=== PATIENT | male | born 1970 | race Hispanic/Latino ===

== ENCOUNTER 2019-05-02 06:54 | Inpatient (IN) | payer OTHER, SELFPAY ==
[2019-04-21 15:18] VITALS: BMI 29.8
[2019-05-02] VITALS (21 sets, daily range): BP systolic 97–162; BP diastolic 64–96; PULSE 82–132; RESP 10–20; TEMP 36.4–37.8; O2SAT 92–100; BMI 28.8
--- NOTE | 2019-05-02 | PATH_ITS ---
[facility] Accession Number: [id number] . 01 Material submitted: . kidney - RIGHT KIDNEY . 02 Diagnosis: Right Kidney, Total Nephrectomy: Clear cell renal cell carcinoma; see cancer case summary. . . SURGICAL PATHOLOGY CANCER CASE SUMMARY - KIDNEY Procedure: Total nephrectomy. Specimen laterality: Right. Tumor site: Lower pole. Tumor size: Greatest dimension: 6.5 cm. Tumor focality: Unifocal. Histologic type: Clear cell renal cell carcinoma. Sarcomatoid features: Not identified. Rhabdoid features: Not identified. Histologic grade: G2. Tumor necrosis: Not identified. Tumor extension: Tumor limited to kidney. Margins: Uninvolved by invasive carcinoma. Lymphovascular invasion: Not identified. Regional lymph nodes: No lymph nodes submitted or found. Pathologic stage classification (pTNM, AJCC 8th Ed) Primary tumor: pT1b Regional lymph nodes: pNX Pathologic findings in nonneoplastic kidney: None identified. MRV 05/05/2019 1253 Local . 02 Comment: As part of routine quality technician, Dr. Ariza has reviewed this case and agrees with the diagnosis of clear cell renal cell carcinoma. . 02 Electronically signed: . Mitchell Weir MD, PhD, Pathologist NPI- [id number] . 01 Gross description: . Received in formalin, labeled right kidney, weighing 671 grams, is a kidney (12.2 x 7.7 x 5.2 cm) with attached ureter (length-2.7 cm, diameter-1.0 cm), renal artery (length-0.8 cm, diameter-0.5 cm) and renal vein (length-0.8 cm, diameter-1.0 cm). Perinephritic adipose tissue (up to 7.5 cm in depth) encapsulates the entire kidney. No hilar lymph nodes are identified. The adrenal gland is not present. A romero-peacock and bright orange solid rubbery mass (6.5 x 4.8 x 4.5 cm) is identified in the lower pole. The mass appears to be confined to the parenchyma and is located 5.2 cm from the ureteric, and 6.2 cm from the venous resection margins. The mass pushes outward on the capsule but does not appear to extends through and does not extend into the perinephritic adipose tissue. The mass also abuts the renal sinus but does not appear to extend into the cavity. The renal pelvis is unremarkable. The ureter and vessels are unremarkable with no obvious mass invasion. The remaining parenchyma is romero and unremarkable. The resection margins are inked blue and the capsule is inked green. Section code: (A1) ureteric and vascular resection margins en face; (A2-A4) mass and renal sinus, arborist representative; (A5-A9) mass, arborist representative; (A10, A11) uninvolved parenchyma, arborist representative. ([id number]) /MRV 05/04/[id number] Local . 02 Pathologist provided ICD-10: C64.1 . 02 CPT . 179103 Performed at: 01 [facility] [address] [place] [address], [place], [place] [id number] MD Sanford Dia MD Phone: [phone] Performed at: 02 [facility] [address] [place], [place] [id number] MD Moon Ariza MD Phone: [phone]
[2019-05-02] MEDS: LACTATED RINGERS 1,000 ML 42 ML IV (07:30)
[2019-05-02 07:40] LABS: Hematocrit 40.6 % (41-53); Hemoglobin 13.8 g/dL (13.5-17.5)
--- NOTE | 2019-05-02 07:44 | PM.PREOP ---
Pre-operative Note Interval Note History & Physical reviewed/Exam performed by Physician: Yes Changes to H&P: No H&P completed within 30 days and has changed as indicated here:: History and physical exam on file.
[2019-05-02 07:52] LABS: BUN Creatinine Ratio 8.1 (6-22); Blood Urea Nitrogen 13 mg/dL (9-20); Carbon Dioxide 28 mmol/L (22-32); Chloride 104 mmol/L (98-107); Glucose 105 mg/dL (70-100); HEMOLYSIS < 15 (0-50); Sodium 142 mmol/L (137-145)
[2019-05-02] MEDS: CEFAZOLIN 2 GM/100 ML FROZ.PIGGY IV (08:10)
--- NOTE | 2019-05-02 08:14 | SUR.PREOP ---
Epidural placed in pre-op by Dr. Lombardo. Patient monitored during procedure. Became nauseated and tachycardic after procedure. Resolved quickly with HOB lowered. Patient taken to the OR by Pablo.
[2019-05-02] MEDS: LACTATED RINGERS 1,000 ML 100 ML IV ×3 (08:25→10:42)
--- NOTE | 2019-05-02 09:01 | SUR.OPER ---
Lateral on padded OR bed, head on pillow, gel axillary roll in place, bottom leg bent with gel pad under knee to foot, upper leg straight and supported with pillows. Upper arm supported by pillows and secured over bottom arm to padded arm board. Safety belt at hip, tape over blanket lower legs.
--- NOTE | 2019-05-02 09:39 | P.PCN_ITS ---
Procedures Date/Time Date of procedure: 05/02/19 Time of procedure: 07:45 General Procedure description: Thoracic epidural placed preoperatively for pain control after a Right radical total nephrectomy for unknown RCC type tumor by Dr Hilda gotti. Risks and benefits were discussed with the patient who agreed to proceed. In pre-op holding, patient was positioned sitting, slouched position with ASA monitoring. For procedural sedation, he was given 2mg Versed and 50mcg Fentanyl. Skin was prepped with chlorhexidine and allowed to fully dry. Sterile drapes applied. I wore sterile glove, hat and mask. Skin was anesthetized with 1% lidocaine. Using an 18 ga Tresa needle with low resistance saline syringe, epidural space was located between T8-9 interspace. Loss of resistance occured at 5 cm deep to skin. Catheter was threaded to 11cm at skin (6 cm in epidural space). Mastasol, large tegaderm and Medipore tape were used to secure catheter to skin. Test dose of 1.5% lidocaine with epi (3ml) was given. No change in patient heart rate or sensation change. As I was completing the dressing after test dose, patient reported feeling nauseated. HR had increased from 80s to 110s. BP also increased, likely from distressing feeling of nausea. Patient was positioned supine, fluids wide open. Within 2min he began to feel better. I do not believe this catheter was intravascular as no blood was aspirated via low resistance syringe or epidural catheter. Epidural would be later dosed in OR with 5 ml 1% lidocaine with good dermatomal sensory change and expected hemodynamic SVR reduction. Epidural infusion ordered with 0.125% bupivicaine with 2mcg/ml fentanyl at infusion rate of 6ml/hr with PCEA demand dose of 3ml/request with 15min lockout time.
[2019-05-02] MEDS: BUPIVACAINE 0.5% (PF) VIAL 30 ML INJ (09:43)
[2019-05-02] MEDS: BUPIVACAINE LIPOSOME 266 MG/20 ML VIAL INJ (09:44)
[2019-05-02] MEDS: ACETAMINOPHEN IV 1,000 MG/100 ML VIAL 400 MG IV (11:42)
--- NOTE | 2019-05-02 12:52 | PM.OP.1 ---
Operative Date/Time/Diagnoses Date of procedure: 05/02/19 Time of procedure: 12:52 Pre-op diagnosis: 1. 7 cm right lower renal pole neoplasm. 2. Large superior pole right renal cyst. Post-op diagnosis: same Procedure & Clinicians Procedure: Right hand assisted space laparoscopic radical nephrectomy. Same procedure as scheduled: Yes Indications: 7 cm right lower pole renal neoplasm. Surgeon: Lorenzo Chavez Botanical Technical Officer: Opal Romero Click Yes if Unassisted: No Anesthesia Type: General and Epidural Operative Notes Findings: 1. Large left superior pole renal cyst. 2. 7 cm right lower pole renal neoplasm. Closure Type: primary Specimen(s): other (Right kidney.) Estimated Blood Loss (mL): 100 Blood products transfused: none Tourniquet time (min): 0 Procedure in detail: Following placement of epidural anesthesia induction of general anesthesia the patient was carefully positioned and padded in modified right flank position. the abdomen torso and flank were prepped and draped in sterile fashion. 0.5% Marcaine with epinephrine was then infiltrated into the skin and subcutaneous tissue to the midline abdominal wall superior to the umbilicus incision was then made in the subcutaneous fat was divided with the cautery pen the rectus fascia was divided also with the cautery pen the preperitoneal fat was divided bluntly and the peritoneum was opened the full length of the incision. A laparoscopic hand port was then placed in the midline supraumbilical incision. A pneumoperitoneum was then created. The same local anesthetic was used to infiltrate the skin and subcutaneous tissue in the right mammary line space 1 below low doc right costal margin and the other lateral to the umbilicus 1 cm incisions were made in these locations and 12 mm point ports were placed under direct visualization next the camera was positioned and dissection of the lateral white line of Toldt was conducted using blunt and cautery dissection using the thigh under be device. Careful incision of the peritoneal reflection was then undertaken beneath the liver underneath the gallbladder into the midline the division of the perineum was then extended down to the level of the iliac crest. The colon was then reflected medially. Careful and meticulous blunt and cautery dissection were then utilized. The aorta was identified by palpation. Careful blunt and cautery dissection were then used to identify the surface of the vena cava. Acute With reference to the preoperative imaging the right renal artery and vein were then identified very near the interface of the large superior pole cyst in the superior pole of the kidney. A 65 mm vascular staple load was then passed across the structures, engaged in the structures divided. Hemostasis was excellent. Next blunt cautery dissection were used around the inferior pole of the right kidney the ureter was identified and clipped proximally and distally before division sharply. An accessory renal vein was seen going to the upper pole this was also clipped proximally and distally x3 and divided using the Thunderbeat. Next the remainder of the connections at the superior pole were then addressed and divided and the cyst was drained to allow removal. The kidney and surrounding perirenal fat and Gerota's fascia were then brought out through the supraumbilical incision and handed off the field to be sent to pathology for routine gross and microscopic examination. The right peritoneum was again examined carefully and hemostasis was excellent. The right colon and hepatic flexure were then positioned anatomically. The omentum was then positioned anatomically. The inferior 12 mm port was then closed under direct visualization with 1-0 Vicryl. The superior 12 mm port incision was closed under direct visualization from the anterior skin surface. The midline incision was closed beginning it at the apex inferiorly and superiorly with 0 PDS. The sutures were then tied together and the approximately the mid point. The subcutaneous layer was then reapproximated using a running 3 0 Vicryl. The skin was then reapproximated using a running subcuticular 4 0 Monocryl. The port incisions skin layer was reapproximated using the same suture and technique. Small pieces of Telfa were then fashioned and fitted to cover the each of the 3 incisions. Op site dressings were then applied over this and to the skin. The patient was then repositioned in supine. He was then awakened and transferred to [facility] in stable condition to the PACU. Complications: none Post-operative Condition: stable Disposition: PACU Plan for aftercare: Admit to med/surg floor.
[2019-05-02] MEDS: LACTATED RINGERS 1,000 ML 125 ML IV ×2 (13:40→20:26)
--- NOTE | 2019-05-02 13:55 | PC.ADMIT ---
[address] [address] Admission Note: The patient,Arthur Saenz,48 y/o, was given written information regarding hospital policies, unit procedures and contact persons. Patient's smoking status: Never smoker. Vital Signs - 8 hr 05/02/19 07:24 05/02/19 12:52 05/02/19 12:57 Temperature 97.5 F L 97.5 F L Pulse Rate 87 82 97 H Respiratory Rate 20 12 12 Blood Pressure 162/96 H 142/89 H 145/87 H Pulse Oximetry 100 98 97 05/02/19 13:02 05/02/19 13:07 05/02/19 13:13 Temperature Pulse Rate 93 H 90 98 H Respiratory Rate 16 16 10 L Blood Pressure 151/89 H 146/89 H 152/81 H Pulse Oximetry 98 98 97 05/02/19 13:27 05/02/19 13:48 Temperature 97.9 F 98.1 F Pulse Rate 89 97 H Respiratory Rate 14 16 Blood Pressure 147/80 H 97/78 Pulse Oximetry 97 95 Rec'd pt from PACU via bed at 1335. Pt is mildly drowsy but AAO x3 and able to make needs known with clear, logical speech. He is moving all extremities independently to command. He denies any feelings of numbness/tingling/burning to extremities. Assessed sensory level T5-8 bilataterally. Pt is denying pain but states I feel a little something. It's not pain, though. Epidural site is WNL. 3 dsgs to abd noted (see physical assessment). Pt is oriented to room, routine, fall risk, bedside shift report, plan of care. He verbalizes understanding.
--- NOTE | 2019-05-02 14:19 | CM.IDA ---
Discharge Planning/Care Management CM Discharge Assessment Start: 05/02/19 14:14 Freq: Status: Active Protocol: Document 05/02/19 14:14 ANYA (Rec: 05/02/19 14:19 ANYA [id number]) Discharge Planning Assessment Assigned Payroll Benefits Clerk SARINA Bailey DPOA/Assigned Designee Name Delores Saenz, spouse Contact Information [phone] Advance Directives? No History Provided By Medical Record Prior Living Arrangements House Household Members spouse Type of transporation used prior to Drives own vehicle admit Independent with ADL's Yes Is patient alert and oriented? Yes Comment Pt had Right hand assisted space laparoscopic radical nephrectomy today w/Dr Chavez, Urologist. PCP: Sydney Larson Payer: [facility] Reviewed chart, pt sent to ICU for epidural today, just arrived to rm 102. Pt will likely return home w/family to assist once medically cleared This PATCHER WOOD WELDER will plan further assessment of DC needs POD#1 SARINA Casillas Discharge Plan Home Transportation Arrangement Family Additional Comment Needs further assessment
[2019-05-02] MEDS: FENT 2MCG/ML BUPIV 0.125% EPI 200 MCG/100 ML PLAST..BAG 7 MCG EPIDURAL ×2 (16:25→20:26)
--- NOTE | 2019-05-02 18:48 | PC.NURSE ---
Addendum entered by Tori Sky R.N. 05/02/19 20:51: 2000- Pt resting in bed. Drsg unchanged from prior assessment, scant shadow drainage. Epidural infusing at 7cc/hr. Pt able to reposition self in bed, declines assistance. Continue to encourage IS use. HR 125. Temp 99.9. Monitor. Supportive at bedside. Addendum entered by Tori Sky R.N. 05/02/19 19:31: 1900 - Pt agreeable for activity. Sat at edge of bed. Reinforced safety. Pt denies lightheadedness. C/o mild discomfort to left shoulder. Declines intervention. Abd pain, indicating generalized motion of central abd, 3 of 10. Pt able to stand at bedside, marched in place. Steady. Uribe with sediment and slight pink-tinged color. HR continues to be tachycardic, 110-120. Dr. Chavez called to check on pt, updated to above. Monitor. Original Note: 1800 - Pt sitting up in bed. Eating meal. Denies pain. Hr 120's at rest, up to 130's with activity. Temp 100.1, I.S. provided. Pt able to draw a volume of 2200. Encourage continued use [address] Chavez notified of the above. Reviewed urine output. No new orders. Monitor.
[2019-05-03] VITALS (12 sets, daily range): BP systolic 118–138; BP diastolic 65–77; PULSE 77–107; RESP 16–20; TEMP 36.6–38.7; O2SAT 91–98
--- NOTE | 2019-05-03 01:51 | PC.NURSE ---
Addendum entered by Juliana Hernández R.N. 05/03/19 06:40: Patient was up to BSC with flatus only, rates pain 4/10 during activity. Now satting >92% on RA. Original Note: Building Service Worker [id number] has been sleeping, rouses easily and oriented x3 for assessment. Epidural patent and infusing at 7ml/hr, rates right side abdominal pain 3/10. Denies numbness or tingling to BLEs. SpO2 88-91% on RA while asleep, placed him on 1L NC with sats increasing up to 98%. HRR 94-110. Afebrile.
[2019-05-03] MEDS: LACTATED RINGERS 1,000 ML 125 ML IV (04:25)
[2019-05-03 05:17] LABS: Add Manual Diff / Slide Review NO; Basophils Absolute Auto 0 /uL (0-100); Basophils Percent Auto 0.1 % (0-2); Eosinophils Absolute Auto 0 /uL (0-450); Eosinophils Percent Auto 0.1 % (2-4); Hematocrit 32.2 % (41-53); Hemoglobin 10.9 g/dL (13.5-17.5); Lymphocytes Absolute Auto 1600 /uL (1100-4500); Lymphocytes Percent Auto 15.5 % (25-40); Mean Corpuscular Hemoglobin 30.3 PG (26-34); Mean Corpuscular Volume 89.3 fL (80-100); Monocytes Absolute Auto 1500 /uL (0-900); Monocytes Percent Auto 14.8 % (3-14); Neutrophils Absolute Auto 7100 /uL (1500-7000); Neutrophils Percent Auto 69.5 % (50-75); Platelet Count 230 X10^3/uL (150-400); Red Cell Distribution Width 12.2 % (11.6-14.8); White Blood Cell Count 10.2 X10^3/uL (4.5-11.0)
[2019-05-03 05:24] LABS: BUN Creatinine Ratio 8.7 (6-22); Blood Urea Nitrogen 13 mg/dL (9-20); Carbon Dioxide 28 mmol/L (22-32); Chloride 103 mmol/L (98-107); Estimated Glomerular Filt Rate 49.5 mL/min (>60); Glucose 113 mg/dL (70-100); HEMOLYSIS < 15 (0-50); Potassium 4.3 mmol/L (3.4-5.1); Sodium 137 mmol/L (137-145)
[2019-05-03] MEDS: FENT 2MCG/ML BUPIV 0.125% EPI 200 MCG/100 ML PLAST..BAG 7 MCG EPIDURAL ×2 (09:27→21:32)
[2019-05-03] MEDS: ACETAMINOPHEN 325 MG TABLET 650 MG PO ×2 (09:28→20:21)
[2019-05-03] MEDS: ENOXAPARIN 40 MG/0.4 ML SYRINGE SUBCUT (09:28)
--- NOTE | 2019-05-03 10:16 | PM.PN.1 ---
Subjective Subjective Date Patient Seen: 05/03/19 Time Patient Seen: 10:16 Interval history: The patient reports uneventful evening and night status post right radical nephrectomy. Overall pain control has been very adequate with maximal pain level for over 10. he has not required additional analgesic beyond current dose rate per epidural catheter. He is passing flatus. He is tolerating a general diet. Exam Vital Signs (past 8 hours): - 05/03/19 03:30 05/03/19 08:30 Temperature 99.1 F 98.8 F Pulse Rate 97 H 83 Respiratory Rate 18 18 Blood Pressure 138/74 121/69 Pulse Oximetry 97 96 Oxygen Delivery Method Room Air Oxygen Flow Rate 0 Narrative Exam Narrative: He is sitting upright in bed in no acute distress. He is conversant awake alert and appropriate. He denies pain or other complaints. Chest - equal and nonlabored bilaterally. Heart - regular rate and rhythm. Abdomen - mildly distended and soft. Bowel sounds are active. Dressings are intact. Extremities- SC D's are applied and functioning. No pallor edema clubbing or cyanosis. Objective Labs Result Diagrams: 05/03/19 04:45 05/03/19 04:45 Labs: Laboratory Results - last 24 hr 05/02/19 05/03/19 05/03/19 13:40 04:45 04:45 WBC 10.2 RBC 3.60 L Hgb 10.9 L Hct 32.2 L MCV 89.3 MCH 30.3 MCHC 34.0 RDW 12.2 Plt Count 230 Neut % (Auto) 69.5 Lymph % (Auto) 15.5 L [place] % (Auto) 14.8 H Eos % (Auto) 0.1 L Baso % (Auto) 0.1 Neut # (Auto) 7100 H Lymph # (Auto) 1600 [place] # (Auto) 1500 H Eos # (Auto) 0 Baso # (Auto) 0 Sodium 137 Potassium 4.3 Chloride 103 Carbon Dioxide 28 BUN 13 Creatinine 1.50 H Estimated GFR 49.5 L BUN/Creatinine Ratio 8.7 Glucose 113 H Calcium 9.0 Nasal Screen MRSA (PCR) Negative for mrsa Assessment & Plan Assessment & Plan narrative: 1. stable postoperative day 1, status post right hand assisted laparoscopic radical nephrectomy. 2. current and history of chronic renal disease. 3. mild glucose intolerance. 1. increase diet and activity. 2. remove Uribe catheter in a.m. and conduct a voiding trial. 3. continue epidural and plan for removal 05/05/2019. 4. pathology report pending. Quality VTE Deep Vein Thrombosis/Pulmonary Embolism Present on Admission: No
--- NOTE | 2019-05-03 11:19 | PC.NURSE ---
Addendum entered by Mik Aguirre R.N. 05/03/19 14:56: Pt without continued c/o chest pressure. Pain is well controlled with epidural analgesia. Pt up ambulating around nurse's station with SBA (no AD). Gait is steady. Addendum entered by Mik Aguirre R.N. 05/03/19 11:38: After resting for about 15 minutes in bed with ice pack on left shoulder, pt states pain has completely resolved. Administered protonix per order. Original Note: 1050- SBA OOB ambulating in hallway. Pt was able to walk with steady gait approx 100 ft without assitive device. Upon return to room, pt was sitting up to chair and began to c/o 2/10 chest pressure which he localized to mid sternum. He also c/o 6/10 left shoulder pain which he described as achy. He requested to go back to bed. I'm just really uncomfortable right now. Placed order for EKG per protocol. Notified Dr. Chavez of EKG results, VS, pt c/o left should pain, c/o chest pressure. Orders obtained for troponin x2 and protonix PO. MD instructed to notify for any changes or abnormal labs.
[2019-05-03] MEDS: PANTOPRAZOLE 40 MG TABLET PO (11:32)
[2019-05-03 13:19] LABS: Troponin I < 0.012 ng/mL (0.01-0.034)
--- NOTE | 2019-05-03 14:29 | CM.DPNOTE ---
DCP Assessment Note: Reviewed chart, spoke w/ PPA TEACHER Tanya and RN Mitchell, and met w/pt to introduce role today. Pt is indp and active at baseline, he lives w/his in [place]. Pt states they have children together but they are all grown. Pt's spouse is an RN that works from home. Pt plans to return home when medically cleared w/assist from family and friends. Reviewed medical POC . Epidural is not scheduled to be removed until Sunday, pathology results are still pending. Pt has been walking w/staff w/o AD but admits he becomes tired easily and fears he will not easily be able to manage the stairs to his bedroom once home. Pt explains he will likely get stronger as he recovers. Two of pt's friends enter the room. Pt appreciative for this BUOY TENDER's visit and requests contact information be left in case his and further questions. Contact information left on pt's white board in . Following closely for any DC needs or concerns that might arise. PT/OT eval might be helpful once medically appropriate to eval/treat and also discuss preparing pt's home to be as safe as possible as he recovers from nephrectomy. P: DC home w/spouse and family/friends via pov expected upon medical clearance SARINA Casillas
[2019-05-03 20:08] LABS: Troponin I < 0.012 ng/mL (0.01-0.034)
--- NOTE | 2019-05-03 20:23 | PC.NURSE ---
Addendum entered by Lisa Gonzalez R.N. 05/03/19 22:42: Dr Chavez aware of pt's temp. Now afebrile after IS use for two hours. 9.6. Pt sleeping soundly, denies pain. Addendum entered by Lisa Gonzalez R.N. 05/03/19 21:37: Pts temp 100.3, continues with IS now 10x qhr. Epidural pump reservoir refilled. New bag hung with JASON Alvarez. Wasted 12mL. Pt used PCEA dose x2. Addendum entered by Lisa Gonzalez R.N. 05/03/19 20:46: Called Dr. Chavez to notify of pt's temp. Left voicemail requesting return call to ICU. Original Note: Pt sleeping soundly. woken up for vitals. Temp 101.7. No pain. HR 90s. Given 650mg PO Tylenol. Will notify SERVICE OFFICER and monitor temp.
[2019-05-04] VITALS (11 sets, daily range): BP systolic 121–139; BP diastolic 60–79; PULSE 57–78; RESP 16–18; TEMP 36.6–37.6; O2SAT 95–98
[2019-05-04] MEDS: PANTOPRAZOLE 40 MG TABLET PO (06:20)
--- NOTE | 2019-05-04 06:22 | PC.NURSE ---
Monitoring Analyst Note-Patient was able to sleep most of night with abdominal pain controlled with epidural infusing at 7ml/hr, did not need additional doses. Afebrile, VSS, SpO2 >94% on RA. Uribe catheter DC'd in am per MD order, total UOP 1175ml clear yellow urine. CBG 65, given cranberry juice, increased to 110 1/2 hour later.
[2019-05-04] MEDS: SODIUM CHLORIDE 0.9% FLUSH 10 ML IV ×2 (09:23)
[2019-05-04] MEDS: DOCUSATE 100 MG CAPSULE PO (09:41)
--- NOTE | 2019-05-04 09:48 | P.PN_ITS ---
Subjective Subjective Date Patient Seen: 05/04/19 Time Patient Seen: 09:48 Interval history: The patient provides no new complaints. He is ambulating well and no longer is having any left shoulder pain. He continues to tolerate a robust general diet. He is passing flatus. Pain control is stable at approximately for over 10. Uribe catheter was removed early this a.m. and he has since voided without difficulty. Exam Vital Signs (past 8 hours): - 05/04/19 02:00 05/04/19 02:15 05/04/19 05:30 Temperature 98.4 F 97.9 F Pulse Rate 67 69 Respiratory Rate 18 18 Blood Pressure 134/78 122/60 Pulse Oximetry 95 95 95 05/04/19 05:51 05/04/19 08:34 Temperature 98.3 F Pulse Rate 78 Respiratory Rate 18 Blood Pressure 139/74 Pulse Oximetry 95 96 Oxygen Delivery Method Room Air Oxygen Flow Rate 0 Narrative Exam Narrative: He is sitting comfortably in bed in no distress. Chest equal and nonlabored bilaterally. Abdomen is soft and scaphoid. Dressings are intact and mild serosanguineous staining of the Telfa pad is unchanged. Minimal rakesh rounding ecchymosis. Objective Labs Result Diagrams: 05/03/19 04:45 05/03/19 04:45 Labs: Laboratory Results - last 24 hr 05/03/19 05/03/19 12:45 19:20 Troponin I < 0.012 < 0.012 Assessment & Plan Assessment & Plan narrative: Assessment: 1. Stable postoperative day 2. Status post right hand assisted laparoscopic right radical nephrectomy. 2. Chronic kidney disease. 3. Pathology pending. Plan: 1. Trial with epidural catheter capped and use of oral or intermittent as needed IV narcotic analgesic. 2. Outpatient referral to Nephrology. 3. Follow-up and review pathology report when available. Quality VTE Deep Vein Thrombosis/Pulmonary Embolism Present on Admission: No
--- NOTE | 2019-05-04 10:05 | CM.DPC ---
DCP Cont: Per MD, pt making progress and can d/c his davison and increase ambulation. Per RN, pt so far seems to be tolerating not having his davison and has been ambulating independently around the unit with present and supportive and possible d/c home tomorrow if stable. Plan: SW to continue to follow for possible d/c home with supportive spouse tomorrow if stable. SW to follow for any further identified discharge planning needs. SARINA Nye
[2019-05-04] MEDS: FENT 2MCG/ML BUPIV 0.125% EPI 200 MCG/100 ML PLAST..BAG 7 MCG EPIDURAL (11:18)
[2019-05-04] MEDS: ENOXAPARIN 40 MG/0.4 ML SYRINGE SUBCUT (11:32)
--- NOTE | 2019-05-04 14:17 | PC.NURSE ---
Am shift Pt is A/o x4, reports epidural is effective for pain. Currently running @ 7mls/hr Fent/bupivicaine. T 10-12 level good coverage, able to feel pressure and temperature. Able to ambulate with SBA, and at bedside with involvement in care. Pt updated on POC, and epidural likely to run until tomorrow. Dr Lombardo into see Pt and Dr Chavez. Decided on capping epidural this afternoon as Pt is doing well, 1240PM Epidural capped, disconnected from epidural cath, education provided to Pt about pain control options. Up ambulating with . APAP given @ 1430 with good effect.
[2019-05-04] MEDS: ACETAMINOPHEN 325 MG TABLET 650 MG PO (14:30)
[2019-05-04] MEDS: OXYCODONE/ACETAMINOPHEN 5/325 TABLET 2 TAB PO ×2 (16:37→20:36)
--- NOTE | 2019-05-04 18:22 | PC.NURSE ---
Epidural catheter removed without incident. Distal tip intact.
--- NOTE | 2019-05-05 00:29 | PC.NURSE ---
Book Sewing Machine Operator Note: 0030: Awake, resting in bed. resting at bedside. IV in place in rt hand. SCDs off at this time due to pt up independently. Vital signs stable.
[2019-05-05 06:00] VITALS: BP 145/71; PULSE 65; RESP 18; TEMP 36.3; O2SAT 96
[2019-05-05] MEDS: PANTOPRAZOLE 40 MG TABLET PO (06:47)
--- NOTE | 2019-05-05 07:01 | P.DS_ITS ---
History of Present Illness History of Present Illness Date Patient Seen: 05/05/19 Time Patient Seen: 07:02 Chief complaint: [id number] Narrative: 1. Right lower pole renal neoplasm. 2. Chronic kidney disease. Discharge Providers Provider Date of admission: 05/02/19 06:54 Discharge Date: 05/05/19 Primary care physician: Sydney Larson DO Consults: 05/02/19 13:26 Consult to Discharge Planning Routine Comment: Discharge provider: Lorenzo Chavez MD Summary Hospital Course Discharge Diagnosis: 1. Right lower pole renal neoplasm. 2. Chronic kidney disease. Hospital Course: The patient was admitted on the morning of 05/02/2019 and underwent uncomplicated right hand assisted laparoscopic radical nephrectomy under general and epidural anesthesia. There after he was able to sit and stand at the bedside and tolerate a general diet the very night following surgery. The patient experienced a period of tachycardia that same evening without other abnormality of vital signs. Aggressive pulmonary toilet with incentive spirome try resulted in normalization of his heart rate. EKG was unremarkable other than sinus tachycardia. Troponin levels x2 on 05/03/2019 were both normal. He did demonstrate a transient fever on the 1st postoperative night again resolved with aggressive pulmonary toilet. He continued to tolerate a general diet and was able to ambulate without assistance in transfer without assistance early in the 2nd postoperative day. The Uribe catheter was removed early the 2nd postoperative day and he subseq uently voided without difficulty. The epidural catheter and and analgesia was discontinued on the 2nd postoperative day. He subsequently had very adequate management of postoperative pain with oral narcotic analgesics. On the morning of 05/05/2019 the patient is stable for discharge. Pathology is pending at discharge. He was provided routine postoperative activity hygiene and driving instructions and restrictions. Postoperative visit will be arranged in my office in about 2 weeks for routine wound check and review of pathology report. He has a follow-up appointment with Medical Oncology on May 15, 2019. I will make arrangements for nephrology consultation at postoperative follow-up visit. Status at Discharge Cognitive/behavioral status at discharge: oriented Functional status at discharge: independent ambulation Overall status at discharge: patient is back to baseline Exam Vital Signs (past 8 hours): - 05/04/19 23:25 05/05/19 06:00 Temperature 98.4 F 97.4 F L Pulse Rate 63 65 Respiratory Rate 18 18 Blood Pressure 130/77 145/71 H Pulse Oximetry 95 96 Oxygen Delivery Method Room Air Oxygen Flow Rate 0 Narrative Exam Narrative: The patient is sitting upright in bed comfortable in no acute distress. He is oriented and conversant. Abdomen is scaphoid soft wound dressings are intact. Objective Labs Result Diagrams: 05/03/19 04:45 05/03/19 04:45 Discharge Plan Discharge Plan Discharge comment: Discharge to home. Discharge orders & Medications Discharge Orders: Discharge (Order); Ordered 05/05/19 Ordered By: Lorenzo Chavez Prescriptions: New oxycodone 5 mg tablet 5 mg PO Q4H PRN (Reason: pain) Qty: 30 RF: 0 enoxaparin [Lovenox] 40 mg/0.4 mL Syringe 40 mg subcut DAILY 30 Days RF: 0 acetaminophen 325 mg Tablet 650 mg PO Q6HR PRN (Reason: Pain, Mild (1-3)) Qty: 60 RF: 0 docusate sodium [DOK] 100 mg Capsule 100 mg PO BID PRN (Reason: Constipation) 10 Days RF: 0 No Action No Known Home Medications RF: 0 Follow up/Referrals: Sydney Larson DO [Primary Care Provider] - Discharge Data Primary Care Provider: Sydney Larson Quality VTE Deep Vein Thrombosis/Pulmonary Embolism Present on Admission: No
[2019-05-05] MEDS: ACETAMINOPHEN 325 MG TABLET 650 MG PO (07:02)
[2019-05-05 07:15] VITALS: O2SAT 97
[2019-05-05 07:29] VITALS: BP 130/85; PULSE 60; RESP 16; TEMP 36.9; O2SAT 97
[2019-05-05] MEDS: ENOXAPARIN 40 MG/0.4 ML SYRINGE SUBCUT (09:06)
--- NOTE | 2019-05-05 10:37 | PC.NURSE ---
Pt d/c'd to home per MD order. Provided d/c educational materials, rx, printed instructions and reviewed verbally. Provided formal education re lovenox injection. (who is a RN) will be administering rx to pt. She is able to provide a return demonstration. Both verbalize understanding. PIV to r hand removed. There is no PIV present to the left AC. All belongings are gathered and pt is able to dress independently and transfer independently to w/c with steady gait. TRAVEL [facility]OTA escorted pt and to POV with all belongings in no acute distress.
== END 2019-05-05 09:35 | disposition home or self-care (01) | DRG 658 ==
LOC: AC 07:22 → ICU 13:42
PROVIDERS: Admitting Provider Specialist; PCP Family Medicine; Visit Provider Specialist
PROC: 0TT04ZZ Resection of Right Kidney, Percutaneous Endoscopic Approach (ICD-10-PCS; principal; 2019-05-02 07:45)
DX: C64.1 Malignant neoplasm of right kidney, except renal pelvis (principal); N18.9 Chronic kidney disease, unspecified; R50.82 Postprocedural fever; R00.0 Tachycardia, unspecified; N28.1 Cyst of kidney, acquired
CPT/HCPCS: 36415; 80048; 82962; 84484; 85014; 85018; 85025; 86850; 86900; 86901; 87797; 93005; C9290; J0131; J0690; J1100; J1170; J1650; J2250; J2405; J2704; J3010

== ENCOUNTER → 2020-05-14 15:58 | Outpatient (CLI) | payer OTHER, SELFPAY ==
[2019-10-21 13:17] VITALS: BMI 28.8
--- NOTE | 2020-05-14 15:59 | DI.CT.S_ITS ---
PROCEDURE: CT CHEST WO CON INDICATIONS: renal cancer/ ckd TECHNIQUE: Noncontrast 5 mm thick sections acquired from the pulmonary apices to the posterior costophrenic angles. 1 mm lung window, 5 mm thick coronal and sagittal and 7 mm axial MIP reformats were then acquired. For radiation dose reduction, the following was used: automated exposure control, adjustment of mA and/or kV according to patient size. COMPARISON: None. FINDINGS: Image quality: Excellent. Lungs and pleura: No acute air space opacities. No discrete pulmonary nodule is seen. No pleural effusions or pneumothorax. Central and peripheral airways are patent and normal in caliber. Mediastinum: Heart size is normal. No pericardial effusion. Prominent left hilar lymph no measures 1 cm in short axis diameter is seen. Subcentimeter lymph nodes are seen scattered in mediastinum measures up to 5 mm in size. Thoracic aorta and central pulmonary arteries are normal in size. Esophagus is normal in caliber. No hiatal hernia. Bones and chest wall: No suspicious bony lesions. No vertebral body compression fractures. No axillary or supraclavicular adenopathy by size criteria. Thyroid gland is within normal limits. Abdomen: Visualized upper abdomen shows numerous well-circumscribed hypodense areas scattered in right and left hepatic lobe and measures up to 3 x 2.3 cm in size in left lobe of liver and up to 1.6 x 1.7 cm in size in right hepatic dome. Large lobulated fluid density structure with thin peripheral calcification is noted in right renal fossa is seen. No normal right kidney is identified. There is possible prior right nephrectomy suggest clinical correlation. Left kidney show no hydronephrosis. IMPRESSION: 1. Lungs are clear. No discrete pulmonary nodule or mass. 2. Nonspecific borderline prominent left hilar lymph node measures 1 cm in short axis diameter. No mediastinal lymphadenopathy by size criteria. 3. Multiple area of well-circumscribed hypodensities scattered in liver parenchyma as above, which may represent hepatic cysts. Comparison with prior study if available can be helpful. 4. Suggestion of prior right nephrectomy with large lobulated cystic area occupying right renal fossa suggest clinical correlation. Dictated by: Ricardo Beverly M.D. on 05/14/2020 at 17:18 Approved by: Ricardo Beverly M.D. on 05/14/2020 at 17:22
--- NOTE | 2020-05-14 15:59 | DI.MRI.S_ITS ---
PROCEDURE: MR ABDOMEN WO/W CON INDICATIONS: hx renal ca/ckd TECHNIQUE: Coronal HASTE through abdomen and pelvis; axial 2D FLASH in- and [id number] (with and without fat saturation), and breath-hold T2 FSE from the hepatic dome to the bottom of the kidneys. Coronal HASTE MR urogram of kidneys and bladder. Dynamic coronal VIBE during IV gadolinium administration; postgadolinium axial VIBE or 2D FLASH with fat saturation from the hepatic dome through the kidneys. COMPARISON: [facility], CT, CT CHEST WO CON, 05/14/2020, 16:12. FINDINGS: Image quality: Excellent. Genitourinary system: Prior right nephrectomy. Large cystic structure in the resection bed without mural nodularity or contrast enhancement. This structure measures up to 10.2 x 12.3 x 12.2 cm in maximal AP, transverse and craniocaudad dimensions. Other solid organs: Normal except for scattered hepatic cysts. Nodes and vessels: No aneurysm, or enlarged lymph nodes. Bowel and peritoneum: Normal morphology. Lung bases: No pulmonary metastatic disease seen. Bones and soft tissues: No soft tissue or osseous metastatic disease found. IMPRESSION: Prior right nephrectomy, large 12.3 x 12.2 x 10.2 cm cyst at the right renal fossa region. This was also seen during CT scanning of the chest 05/14/20. This cyst appears simple in character. Dictated by: Matt Swan M.D. on 05/17/2020 at 11:48 Approved by: Matt Swan M.D. on 05/17/2020 at 11:53
== END ==
PROVIDERS: PCP Family Medicine; Referring Provider Specialist; Visit Provider Specialist
DX: N18.9 Chronic kidney disease, unspecified (principal); Z85.528 Personal history of other malignant neoplasm of kidney; Z90.5 Acquired absence of kidney
CPT/HCPCS: 71250; 74183; A9579

== ENCOUNTER → 2020-06-18 09:02 | Outpatient (CLI) | payer OTHER, SELFPAY ==
[2019-10-21 13:17] VITALS: BMI 28.8
--- NOTE | 2020-06-18 | PATH_ITS ---
Note [facility] Accession Number: [id number] TESTS RESULT FLAG UNITS REF RANGE LAB Clinician Provided Cytology Information No. of containers..01 Other (Miscellaneous) RIGHT UPPER ABDOMEN DIAGNOSIS: RIGHT UPPER ABDOMEN FLUID, ASPIRATION. NEGATIVE FOR MALIGNANT CELLS. EXTREMELY HYPOCELLULAR ASPIRATE WITH RARE MESOTHELIAL CELLS AND FEW INFLAMMATORY CELLS (LYMPHOCYTES). THIS INTERPRETATION INCLUDES EVALUATION OF A CELL BLOCK. Pathologist ICD10: 01 R18.8 01 H/O RENAL CA RESECTION WITH BENIGN APPEARING. 01 Jhoan Dooley MD, Pathologist NPI- [id number] Terry June, Hydraulic Miner ([facility]) 01 50 CC, YELLOW, CLEAR RECEIVED: FRESH IN ORANGE CAP CONTAINER. /[facility] 06/21/2020 1029 Local FLAG LEGEND: L-Low Normal,H-High Normal,LL-Alert Low,HH-Alert High <-Panic Low,>-Panic High,A-Abnormal,AA-Critical Abnormal Performed at: 01 =Z [facility] [address], [place] [address] Sanford Dia MD, Performed at: 01 [facility] [address], [place], [place] [id number] MD Sanford Dia MD Phone: [phone]
--- NOTE | 2020-06-18 11:24 | DI.CT.S_ITS ---
PROCEDURE: CT BIOPSY ABDOMEN PERCUTANEOUS Sedation analgesia was not utilized. INDICATIONS: Right retropertioneal abscess TECHNIQUE: The indications, alternatives, benefits, risks, and possible complications of the procedure were communicated to the patient. Informed written consent from the patient was obtained and placed in the chart. Continuous EKG and hemodynamic monitoring was started by trained personnel. The patient was brought to the CT suite and development advisor spiral CT imaging was performed with localization grid. The appropriate site for percutaneous access to the biopsy target was marked, was prepped and draped sterilely, and was infused with local anaesthesia. Under CT guidance, a core biopsy trocar and needle set was advanced to the biopsy target, and specimen(s) were obtained. The trocar and needle were then removed, and the patient was sent for post-procedure monitoring. COMPARISON: None. FINDINGS: Biopsy site: Right flank region, large chronic in capsulated fluid collection. Needle: 18 gauge Chiba biopsy needle with introducer trocar. Number of passes: 6. Serous fluid was obtained, sent to laboratory for culture and sensitivity and also for microscopic cellular analysis. Medications: 1% lidocaine for local anaesthesia. IV Fentanyl and Versed for conscious sedation was not used Complications: None. IMPRESSION: Successful CT-guided biopsy of large in capsulated chronic right flank region fluid collection in this patient with prior right-sided nephrectomy for renal cell carcinoma.. Dictated by: Matt Swan M.D. on 06/18/2020 at 16:08 Approved by: Matt Swan M.D. on 06/18/2020 at 16:13
== END ==
PROVIDERS: PCP Family Medicine; Referring Provider Specialist; Visit Provider Specialist
DX: K65.1 Peritoneal abscess (principal); N18.9 Chronic kidney disease, unspecified; Z85.528 Personal history of other malignant neoplasm of kidney; Z90.5 Acquired absence of kidney
CPT/HCPCS: 10009; 49180; 77012; 87070; 87075; 87205

== ENCOUNTER → 2021-06-28 11:18 | Outpatient (CLI) | payer OTHER, SELFPAY ==
[2019-10-21 13:17] VITALS: BMI 28.8
--- NOTE | 2021-06-28 11:20 | DI.CT.S_ITS ---
PROCEDURE: CT KIDNEY URETER BLADDER (KUB) INDICATIONS: renal cell carcinoma status post nephrectomy TECHNIQUE: Axial sections were acquired from the lung bases to the pubic symphysis. Coronal and sagittal reformats were performed. For radiation dose reduction, the following was used: automated exposure control, adjustment of mA and/or kV according to patient size. COMPARISON: [facility], MR, MR ABDOMEN WO/W CON, 05/14/2020, 16:34. [facility], CT, CT BIOPSY ABDOMEN PERCUTANEOUS, 06/18/2020, 10:07. FINDINGS: Image quality: Excellent. Lung bases: Unremarkable. Heart: No significant findings. URINARY: Right Kidney: The right kidney is surgically absent. There is a low-density 10.0 x 8.3 by 9.0 cm cystic lesion within the right renal fossa. This measured 10.3 x 11.5 x 12.6 cm on the MRI from May 14, 2020. Trace rim calcification is noted anteriorly, unchanged from the CT dated June 18, 2020. No mural nodularity or internal enhancement. Right Ureter: Surgically absent Left Kidney: The left kidney is normal size. No hydronephrosis or nephrolithiasis. Left Ureter: No hydroureter or ureterolithiasis. Bladder: The bladder is decompressed. No bladder calculi. ABDOMEN: Liver: Multiple circumscribed low-density lesions are visualized throughout the liver suggesting hepatic cysts. Gallbladder: Unremarkable. Biliary ducts: Unremarkable. Pancreas: Unremarkable. Spleen: Unremarkable. Adrenal Glands: Unremarkable. Stomach and Bowel: Stomach, small bowel loops, and colon are unremarkable. There are scattered sigmoid diverticula. No evidence for diverticulitis. The appendix is thin walled. Peritoneum: No abnormal intraperitoneal fluid. No free air. Ventral Wall: No hernia. Abdominal Nodes: No enlarged retroperitoneal or mesenteric lymph nodes. Vessels: Aorta and inferior vena cava are normal in size. PELVIS: Pelvic Organs: Unremarkable. Pelvic Nodes: Unremarkable. Miscellaneous: There are small bilateral fat containing inguinal hernias. Bones: Unremarkable. IMPRESSION: 1. Cystic lesion within the right renal fossa which is smaller in size than the comparison MRI dated May 14, 2020. No findings to suggest tumor recurrence or new metastasis. 2. No acute intra-abdominal findings. Normal appendix. Diverticulosis. No acute diverticulitis. Dictated by: Juani Fernandes M.D. on 06/28/2021 at 14:24 Approved by: Juani Fernandes M.D. on 06/28/2021 at 14:31
[2021-06-28 13:12] LABS: Prostate Specific Antigen 1.22 ng/mL (0.10-4.00)
== END ==
PROVIDERS: PCP Family Medicine; Referring Provider Specialist; Visit Provider Specialist
DX: K57.30 Diverticulosis of large intestine without perforation or abscess without bleeding (principal); N28.89 Other specified disorders of kidney and ureter; R97.20 Elevated prostate specific antigen [PSA]; Z85.528 Personal history of other malignant neoplasm of kidney; Z90.5 Acquired absence of kidney
CPT/HCPCS: 36415; 74176; 84153

== ENCOUNTER → 2022-06-23 07:54 | Outpatient (CLI) | payer OTHER, SELFPAY ==
[2019-10-21 13:17] VITALS: BMI 28.8
--- NOTE | 2022-06-23 07:55 | DI.CT.S_ITS ---
PROCEDURE: CT ABDOMEN PELVIS WO CON INDICATIONS: Abd cyst. Prior right renal malignancy. TECHNIQUE: Noncontrast 5 mm thick sections acquired from the diaphragms to the symphysis. 5 mm coronal and sagittal reformats were then performed. For radiation dose reduction, the following was used: automated exposure control, adjustment of mA and/or kV according to patient size. COMPARISON: CT 06/28/2021, MR 05/14/2020. FINDINGS: Image quality: Excellent. ABDOMEN: Lung bases: Lung bases are clear. Heart size is normal. Solid organs: The liver contains multiple hypoattenuating cysts parent gallbladder sludge. Normal size of the spleen. No pancreatic ductal dilation. Prior right nephrectomy. There is a cystic mass with a thin wall and peripheral calcifications within the right renal fossa, measuring 14.1 x 12.1 cm, previously 8.5 x 9.8 cm. Peritoneum and bowel: Unenhanced bowel loops demonstrate normal wall thickness and caliber. No free fluid or air. Nodes and vessels: No retroperitoneal or mesenteric adenopathy by size criteria. Aorta and inferior vena cava are normal in caliber. Miscellaneous: Tiny umbilical hernia containing fat. PELVIS: Genitourinary: Bladder wall thickness is normal. Miscellaneous: Trace fat within the inguinal canals. Bones: No aggressive osseous abnormality. IMPRESSION: Prior right nephrectomy. Fluid attenuating cystic lesion in the right renal fossa has grown in size, measuring 14.1 x 12.1 cm, previously 9.8 x 8.5 cm. Dictated by: Christopher Elias M.D. on 06/23/2022 at 8:46 Approved by: Christopher Elias M.D. on 06/23/2022 at 8:52
== END ==
PROVIDERS: PCP Family Medicine; Referring Provider Specialist; Visit Provider Specialist
DX: R19.09 Other intra-abdominal and pelvic swelling, mass and lump (principal); N18.9 Chronic kidney disease, unspecified; Z85.528 Personal history of other malignant neoplasm of kidney; Z90.5 Acquired absence of kidney
CPT/HCPCS: 74176

== ENCOUNTER → 2023-05-29 15:31 | Outpatient (CLI) | payer BC, SELFPAY ==
[2019-10-21 13:17] VITALS: BMI 28.8
--- NOTE | 2023-05-29 15:33 | DI.CT.S_ITS ---
PROCEDURE: CT ABDOMEN PELVIS WO CON INDICATIONS: Hx renal cell cancer TECHNIQUE: Axial sections were acquired from the lung bases to the pubic symphysis. Coronal and sagittal reformats were performed. For radiation dose reduction, the following was used: automated exposure control, adjustment of mA and/or kV according to patient size. COMPARISON: [facility], CT, CT ABDOMEN PELVIS WO CON, 06/23/2022, 7:59. FINDINGS: Image quality: Diagnostic. Lower Chest: No significant findings. URINARY: Right Kidney: Removed. No visualized recurrent disease within the renal fossa. Unchanged appearance of partially calcified cystic focus extending into the renal fossa. Left Kidney: No stones or hydronephrosis. Left Ureter: No hydroureter. Bladder: Normal wall thickness. No stones. ABDOMEN: Liver: Multiple simple hepatic cysts, unchanged. Gallbladder: Unremarkable. Biliary ducts: No biliary dilation. Pancreas: No ductal dilation. Spleen: Size is within normal limits. Adrenal Glands: No adrenal nodules. Stomach and Bowel: Normal colonic caliber, without significant wall thickening. Diverticulosis. Peritoneum: No abnormal intraperitoneal fluid. No free air. Ventral Wall: Fat containing ventral hernia. Abdominal Nodes: No enlarged retroperitoneal or mesenteric lymph nodes. Vessels: Aorta and inferior vena cava are normal in size. PELVIS: Pelvic Organs: Unremarkable. Pelvic Nodes: Unremarkable. Miscellaneous: Bilateral fat containing inguinal hernias are seen. Bones: Unremarkable. IMPRESSION: Stable postsurgical right nephrectomy changes. No evidence of recurrent or residual disease. Dictated by: Taylor Gonzalez M.D. on 05/29/2023 at 21:49 Approved by: Taylor Gonzalez M.D. on 05/29/2023 at 21:52
[2023-05-29 16:56] LABS: Prostate Specific Antigen 1.56 ng/mL (0.10-4.00)
== END ==
PROVIDERS: PCP Family Medicine; Referring Provider Specialist; Visit Provider Specialist
DX: N18.9 Chronic kidney disease, unspecified (principal); K76.89 Other specified diseases of liver; K40.20 Bilateral inguinal hernia, without obstruction or gangrene, not specified as recurrent; K43.9 Ventral hernia without obstruction or gangrene; Z85.528 Personal history of other malignant neoplasm of kidney; Z90.5 Acquired absence of kidney
CPT/HCPCS: 36415; 74176; 84153